=== PATIENT | male | born 1995 | race Two or more races ===

== ENCOUNTER 2017-07-01 15:43 | Emergency (ER) | payer SELFPAY ==
[~2017-07-01] VITALS: Ht 170.2 cm; Wt 54.4 kg
[2017-07-01 16:12] LABS: Urine Bilirubin Negative (Negative); Urine Blood Negative /uL (Negative); Urine Color Yellow (Yellow); Urine Glucose Normal (Normal); Urine Ketone Negative (Negative); Urine Mucus FEW (None Seen); Urine Nitrite Negative (Negative); Urine RBC <1 /hpf (0 - 3); Urine Urobilinogen Normal (Negative)
[2017-07-01 16:29] LABS: Basophils # (auto) 0 uL; Basophils % (auto) 0.3 % (0.0-2.0); CONDITION Y; Eosinophils # (auto) 0.2 uL; Eosinophils % (auto) 3.8 % (0.0-7.0); Hemoglobin 15.5 g/dL (13.5-17.5); Lymphocytes # (auto) 2.4 uL; Lymphocytes % (auto) 41.4 % (10.0-50.0); Mean Corpuscular Hemoglobin 31.8 pg (28.0-32.0); Mean Corpuscular Hgb Conc. 34.3 g/dL (32.0-36.0); Mean Corpuscular Volume 92.7 fL (80.0-100.0); Mean Platelet Volume 7.8 fL (7.4-10.4); Monocytes # (auto) 0.5 uL; Monocytes % (auto) 8.2 % (0.0-12.0); Neutrophils # (auto) 2.7 uL; Neutrophils % (auto) 46.3 % (37.0-80.0); Platelet Count (auto) 310 10^3/uL (140-450); White Blood Cell 5.9 10^3/uL (4.4-10.8)
[2017-07-01 16:47] LABS: Albumin 4.2 g/dL (3.4-5.0); BUN/Creatinine Ratio 17.9; Potassium 3.9 mmol/L (3.5-5.1)
[2017-07-01 16:49] LABS: Acetaminophen < 2.0 ug/mL (10-30); Salicylate < 1.7 mg/dL (2.8-20.0)
[2017-07-01 16:50] LABS: Bilirubin, Total 0.7 mg/dL (0.2-1.0); Total Protein 8.1 g/dL (6.4-8.2)
[2017-07-01 19:20] VITALS: BP 124/77
== END 2017-07-01 21:39 | disposition home or self-care (01) ==
LOC: ER 15:47
DX: F32.9 Major depressive disorder, single episode, unspecified (principal); F41.9 Anxiety disorder, unspecified; F17.210 Nicotine dependence, cigarettes, uncomplicated; F19.10 Other psychoactive substance abuse, uncomplicated; F12.10 Cannabis abuse, uncomplicated; R45.851 Suicidal ideations
CPT/HCPCS: 36415; 80053; 80307; 80329; 81001; 85025

== ENCOUNTER 2017-07-02 13:10 | Emergency (ER) | payer SELFPAY ==
[~2017-07-02] VITALS: Ht 170.2 cm; Wt 54.4 kg
[2017-07-02 13:30] VITALS: BP 133/80
== END 2017-07-02 14:12 | disposition home or self-care (01) ==
LOC: ER 13:13
DX: F31.9 Bipolar disorder, unspecified (principal); F41.9 Anxiety disorder, unspecified; Z76.0 Encounter for issue of repeat prescription

== ENCOUNTER 2019-04-28 10:59 | Emergency (ER) | payer SELFPAY ==
[~2019-04-28] VITALS: Ht 172.7 cm; Wt 61.9 kg
[2019-04-28 12:35] VITALS: BP 137/81
== END 2019-04-28 13:00 | disposition home or self-care (01) ==
LOC: ER 11:11
DX: R51 Headache (principal); F17.210 Nicotine dependence, cigarettes, uncomplicated; F12.10 Cannabis abuse, uncomplicated